=== PATIENT | male | born 1955 | race Hispanic/Latino ===

== ENCOUNTER → 2019-04-11 | Day surgery (SDC) | payer MEDICARE, OTHER ==
[~2019-04-11] MED LIST: ASPIR 8181 MG PO; ATORVASTATIN CA20 MG PO; BASAGLAR K100 UNIT/1 SQ; DOXAZOSIN MESYLA2 MG PO; FAMOTIDINE20 MG PO; FUROSEMIDE40 MG PO; HYDRALAZINE HCL25 MG PO; KETAMINE HCL INJ 50 MG/ML 10 ML VIAL ONE; LEXAPRO10 MG PO; LOSARTAN POTAS100 MG PO; MECLIZINE HCL12.5 MG PO; METFORMIN HCL500 MG PO; METOPROLOL SUCC50 MG PO; MIDAZOLAM HCL 2 MG/2 ML VIAL ONE; NOVOLOG100 UNIT/1 SQ; PROPOFOL IV EMULSION 10 MG/ML 50 ML VIAL ONE; VASCEPA1 GM PEG; VITAMIN D33000 UNIT PO
--- OUTSIDE RECORDS SUMMARY | 2019-04-11 06:02 | XMS REPORT ---
Author Author [facility] Organization [facility] Address Unknown Phone Unavailable Care Team Providers Care Pediatric Psychologist Name Role Phone Unavailable Unavailable Problems This patient has no known problems. Allergies, Adverse Reactions, Alerts This patient has no known allergies or adverse reactions. Medications This patient has no known medications. Encounters Start Date/Time End Date/Time Encounter Type Admission Type Attending [facility] Facility Care Department Encounter ID 2018-03-05 00:00:00 2018-03-05 00:00:00 Outpatient [facility] [id number] 2018-02-15 07:16:32 2018-02-15 07:16:32 Outpatient [facility] [id number] 2018-01-29 09:34:41 2018-01-29 09:34:41 Outpatient [facility] [id number] 2018-01-11 00:00:00 2018-01-11 00:00:00 Outpatient [facility] [id number] 2018-01-08 00:00:00 2018-01-08 00:00:00 Outpatient [facility] [id number] 2018-01-01 00:00:00 2018-01-01 00:00:00 Outpatient [facility] [id number] 2017-12-20 10:34:31 2017-12-20 10:34:31 Outpatient [facility] [id number] 2017-11-30 10:02:08 2017-11-30 10:02:08 Outpatient [facility] [id number] 2017-11-23 07:25:31 2017-11-23 07:25:31 Outpatient [facility] [id number] 2017-11-14 00:00:00 2017-11-14 00:00:00 Outpatient [facility] [id number] 2017-11-08 08:54:26 2017-11-08 08:54:26 Outpatient [facility] [id number] 2017-11-02 08:34:52 2017-11-02 08:34:52 Outpatient [facility] [id number] 2017-11-02 08:14:16 2017-11-02 08:14:16 Outpatient [facility] [id number] 2017-10-12 00:00:00 2017-10-12 00:00:00 Outpatient [facility] [id number] 2017-10-11 00:00:00 2017-10-11 00:00:00 Outpatient [facility] [id number] 2017-09-25 00:00:00 2017-09-25 00:00:00 Outpatient [facility] [id number] 2017-09-22 00:00:00 2017-09-22 00:00:[address] [facility] [id number] 2017-09-22 00:00:00 2017-09-22 00:00:00 Outpatient [facility] [id number] 2017-09-19 00:00:00 2017-09-19 00:00:00 Outpatient [facility] [id number] 2017-09-01 10:00:21 2017-09-01 10:00:21 Outpatient [facility] [id number] 2017-09-01 09:45:32 2017-09-01 09:45:32 Outpatient [facility] [id number] 2017-09-01 09:26:23 2017-09-01 09:26:23 Outpatient [facility] [id number] 2017-09-01 07:23:43 2017-09-01 07:23:43 Outpatient [facility] [id number] 2017-08-15 00:00:00 2017-08-15 00:00:00 Outpatient [facility] [id number] 2017-08-10 08:48:49 2017-08-10 08:48:49 Outpatient [facility] [id number] 2017-08-10 07:56:56 2017-08-10 07:56:56 Outpatient [facility] [id number] 2017-07-28 14:00:20 2017-07-28 14:00:20 Outpatient [facility] [id number] 2017-07-28 13:29:10 2017-07-28 13:29:10 Outpatient [facility] [id number] 2017-07-28 09:10:02 2017-07-28 09:10:02 Outpatient [facility] [id number] 2017-07-28 00:00:00 2017-07-28 00:00:00 Outpatient [facility] [id number] 2017-06-19 09:16:10 2017-06-19 09:16:10 Outpatient [facility] [id number] 2017-06-05 09:01:2017-06-05 09:01:09 Outpatient [facility] [id number] 2017-06-01 00:00:00 2017-06-01 00:00:00 Outpatient [facility] [id number] 2017-06-01 00:00:00 2017-06-01 00:00:00 Outpatient [facility] [id number] 2017-05-09 00:00:00 2017-05-09 00:00:00 Outpatient [facility] [id number] 2017-04-03 00:00:00 2017-04-03 00:00:00 Outpatient [facility] [id number] 2017-03-31 00:00:00 2017-03-31 00:00:00 Outpatient [facility] [id number] 2017-03-10 07:40:35 2017-03-10 07:40:35 Outpatient [facility] [id number] 2017-02-08 00:00:00 2017-02-08 00:00:00 Outpatient [facility] [id number] 2017-02-06 07:45:36 2017-02-06 07:45:36 Outpatient [facility] [id number] 2017-02-06 07:16:13 2017-02-06 07:16:13 Outpatient [facility] [id number] 2017-01-13 00:00:00 2017-01-13 00:00:00 Outpatient [facility] [id number] 2016-12-26 00:00:00 2016-12-26 00:00:00 Outpatient [facility] [id number] 2016-12-19 15:22:49 2016-12-19 15:22:49 Outpatient [facility] [id number] 2016-12-09 00:00:00 2016-12-09 00:00:00 Outpatient [facility] [id number] 2016-11-21 09:22:27 2016-11-21 09:22:27 Outpatient [facility] [id number] 2016-11-18 07:43:14 2016-11-18 07:43:14 Outpatient [facility] [id number] 2016-11-18 00:00:00 2016-11-18 00:00:00 Outpatient [facility] [id number] 2016-11-10 00:00:00 2016-11-10 00:00:00 Outpatient [facility] [id number] 2016-11-03 08:29:37 2016-11-03 08:29:37 Outpatient [facility] [id number] 2016-10-05 09:50:01 2016-10-05 09:50:01 Outpatient [facility] [id number] 2016-09-27 00:00:00 2016-09-27 00:00:00 Outpatient [facility] [id number] 2016-09-13 08:23:04 2016-09-13 08:23:04 Outpatient [facility] [id number] 2016-09-02 11:09:08 2016-09-02 11:09:08 Outpatient [facility] [id number] 2016-08-25 11:11:44 2016-08-25 11:11:44 Outpatient [facility] [id number] 2016-08-25 00:00:00 2016-08-25 00:00:00 Outpatient [facility] [id number] 2016-08-02 07:47:00 2016-08-02 07:47:00 Outpatient [facility] [id number]
--- OUTSIDE RECORDS SUMMARY | 2019-04-11 06:02 | XMS REPORT | Summary of Care ---
Author Author TINA WEEMS M.D. Organization Unknown Address Unknown Phone Unavailable Care Team Providers Care Gaming Associate Name Role Phone TINA WEEMS M.D. Unavailable Unavailable Angela Escalante Unavailable Unavailable RONEL BECERRA MD Unavailable Unavailable Tina Weems MD Unavailable Unavailable MARINE CERVANTES MD Unavailable Unavailable Unavailable Unavailable Functional Status Name Dates Details Functional status health issues are not documented Status: Name Dates Details Cognitive status health issues are not documented Status: Problems Name Dates Details Anemia (285.9, D64.9) Status: Active Coronary artery disease (414.00, I25.10) Status: Active Diabetes mellitus type 2, uncontrolled (250.02, E11.65) Status: Active Diabetic retinopathy (250.50, E11.319) Status: Active Dyslipidemia associated with type 2 diabetes mellitus (250.80, E11.69) Status: Active Essential hypertension (401.9, I10) Status: Active Medications Name Dates Details Vascepa 1 GM Oral Capsule TAKE 1- 2 CAPSULE TWICE DAILY Quantity: 360 TINA WEEMS M.D. * Start : 06-Jun-2018 Active HumuLIN R 100 UNIT/ML Injection Solution inject 18 units before breakfast and 10 before lunch and 18 before dinner * Quantity: 2 Refills: 0 * Start : 06-Jun-2018 Active 10 ML Vial HumuLIN N 100 UNIT/ML Subcutaneous Suspension INJECT 90 UNITS AM AND 50 UNITS PM * Refills: 0 * Start : 06-Jun-2018 Active 3 ML Vial Doxazosin Mesylate 1 MG Oral Tablet TAKE 1 TABLET DAILY DIRECTED. * Refills: 0 * Start : 06-Jun-2018 Active Atorvastatin Calcium 40 MG Oral Tablet TAKE 1 TABLET AT BEDTIME. * Refills: 0 * Start : 06-Jun-2018 Active Aspirin Low Dose 81 MG Oral Tablet Delayed Release TAKE 1 TABLET EVERY DAY * Refills: 0 * Start : 06-Jun-2018 Active Nitrostat 0.4 MG Sublingual Tablet Sublingual PLACE 1 TABLET UNDER THE TONGUE EVERY 5 MINUTES FOR UP TO 3 DOSES NEEDED FOR CHEST PAIN.CALL 911 IF PAIN PERSISTS. * Refills: 0 * Start : 06-Jun-2018 Active Metoprolol Succinate ER 50 MG Oral Tablet Extended Release 24 Hour TAKE 1 TABLET ONCE DAILY. * Refills: 0 * Start : 06-Jun-2018 Active 100 Tablet Bottle Losartan Potassium 50 MG Oral Tablet TAKE 1 TABLET TWICE DAILY * Refills: 0 * Start : 06-Jun-2018 Active hydrALAZINE HCl - 25 MG Oral Tablet TAKE 1 TABLET TWICE DAILY * Refills: 0 * Start : 06-Jun-2018 Active Escitalopram Oxalate 10 MG Oral Tablet TAKE 1 TABLET BY MOUTH DAILY * Refills: 0 * Start : 06-Jun-2018 Active Furosemide 40 MG Oral Tablet TAKE 1 TABLET BY MOUTH TWICE DAILY * Refills: 0 * Start : 06-Jun-2018 Active OneTouch Delica Lancets 33G * Refills: 0 * Start : 06-Jun-2018 Active metFORMIN HCl - 500 MG Oral Tablet TAKE 1 TABLET DAILY * Quantity: 90 Refills: 3 SENDOS M.D., TINA * Start : 06-Jun-2018 Active OneTouch Verio In Vitro Strip * Refills: 0 * Start : 06-Jun-2018 Active OneTouch UltraSoft Lancets TEST 3 TIMES DAILY. * Quantity: 270 Refills: 3 SENDOS M.D., TINA * Start : 06-Jun-2018 Active NovoLOG FlexPen 100 UNIT/ML Subcutaneous Solution Pen-injector INJECT 24 UNIT BEFORE BREAKFAST AND LUNCH, 18 UNITS BEFORE DINNER * Quantity: 4 Refills: 2 SENDOS M.D., TINA * Start : 06-Jun-2018 Active 5 x 3 ML Pen Basaglar KwikPen 100 UNIT/ML Subcutaneous Solution Pen-injector INJECT 56 UNITS SUBCUTANEOUSLY IN THE MORNING ADN 48 UNITS IN THE EVENING * Quantity: 7 Refills: 2 SENDOS M.D., TINA * Start : 06-Jun-2018 Active 5 x 3 ML Pen Pen [place] 32G X 4 MM use 4 times a dy * Quantity: 4 Refills: 3 SENDOS M.D., TINA * Start : 06-Jun-2018 Active 100 Unit Box OneTouch Verio In Vitro Strip TEST 3 TIMES DAILY. * Quantity: 3 Refills: 1 SENDOS M.D., TINA * Start : 06-Jun-2018 Active 100 Strip Box Allergies and Adverse Reactions Name Dates Details Actos TABS (Allergy) Status: Active iodine (Allergy) Status: Active Penicillins (Allergy) Status: Active Procedures Procedure Dates Details History of No history of surgery Completed Immunization Name Dates Details Immunizations not documented Family History Name Dates Details Family history of diabetes mellitus (V18.0, Z83.3) Status: Active Name Dates Details Family history of Alzheimer's disease (V17.2, Z82.0) Status: Active Social History Name Dates Details - Status: Name Dates Details Never smoker Vital Signs Date Test Result Details [id number] BP Systolic 169 mm[Hg] Status: Comments: Location: LUE; Position: Sitting BP Diastolic 83 mm[Hg] Status: Comments: Location: LUE; Position: Sitting Weight 261 lb Status: Body Mass Index Calculated 39.69 kg/m2 Status: Body Surface Area Calculated 2.29 m2 Status: Height 68 in Status: Heart Rate 62 /min Status: Results Date Description Value Details [id number] Glucose (Point of Care In Office) Glucose POC Lifescan 224 (Abnormal) 8-Pnc-261025:30 [O] Hemoglobin A1c (in office) HEMOGLOBIN A1c 8.4 (Abnormal) Plan of Care Name Dates Details Planned Observations Planned Goals not documented Interventions Provided Medication Changes* OneTouch Verio In Vitro Strip - Renew Instructions Name Dates Details Instructions not documented Encounters Appointment; RAVINDRA MARTINEZ M.D. Encounter Diagnosis: Problem not documented On: 13-Apr-2018 15:30 Appointment; TINA WEEMS M.D. Encounter Diagnosis: Problem not documented On: 06-Jun-2018 13:40 Appointment; TINA WEEMS M.D. Encounter Diagnosis: Problem not documented On: 25-Jul-2018 10:30 Appointment; TINA WEEMS M.D. Encounter Diagnosis: Problem not documented On: 06-Mar-2019 11:10
[2019-04-11 08:10] VITALS: BP 161/86
== END | disposition home or self-care (01) ==
LOC: OR 06:00
PROVIDERS: ATTEND Internal Medicine Gastroenterology
DX: D50.9 Iron deficiency anemia, unspecified (principal); K29.30 Chronic superficial gastritis without bleeding; B96.81 Helicobacter pylori [H. pylori] as the cause of diseases classified elsewhere; K22.2 Esophageal obstruction; K44.9 Diaphragmatic hernia without obstruction or gangrene; D12.2 Benign neoplasm of ascending colon; K64.8 Other hemorrhoids; I10 Essential (primary) hypertension; E11.21 Type 2 diabetes mellitus with diabetic nephropathy; E11.36 Type 2 diabetes mellitus with diabetic cataract; H26.9 Unspecified cataract; Z79.4 Long term (current) use of insulin; Z79.84 Long term (current) use of oral hypoglycemic drugs; E78.2 Mixed hyperlipidemia; I11.9 Hypertensive heart disease without heart failure
CPT/HCPCS: 36415; 43239; 45385; 82948; 88305; 88312; J2250; J2704; 45378